=== PATIENT | male | born 1950 | race Caucasian/White ===

== ENCOUNTER 2023-08-03 14:06 | Outpatient (AMB) | payer MEDICARE, BC, SELFPAY ==
--- NOTE | 2023-08-03 14:07 | A.OFFVIS_ITS ---
Intake Intake Visit Reasons: Hydrocele Intake Note: NEW Patient presents today to established treatment for Hydrocele: Meds- None Allergies to Antibiotic- No Known Allergies Blood Thinner- None PVR- Patient Symptoms: None Mother Baby Rn Required: No Accompanied by: Self / Same As Patient Allergies morphine [MORPHINE] Allergy (Unknown, Verified 08/03/23 23:23) UNKNOWN Medication List - Last Reconciled 08/03/23 by KATHRYN Salinas-ANDREI hydromorphone mg PO TID lorazepam 1 mg PO DAILY PRN metoprolol succinate ER 100 mg PO DAILY sertraline 100 mg PO DAILY trazodone 100 mg PO BEDTIME PRN HPI HPI Comments History of Present Illness Details Ernie is a very pleasant 73-year-old male patient of Dr. Balderas. He has a past medical history of hypertension, hypercholesteremia, fatty liver, chronic pain from lumbar radiculopathy and left renal cyst. He presents to the office today as a new patient for left-sided hydrocele. In discussion with the patient today reports to be doing and feeling well. He reports a longstanding history of left-sided scrotal swelling. He discusses following up with Dr. Iniguez many years ago and having had multiple in office left-sided hydrocele drainage's performed however continues with recurrent left sided hydrocele. He discusses following up with his PCP at which time recommendations were made for urology referral for further assessment evaluation. However, in discussion with the patient today he does not find hydrocele bothersome and does not wish to undergo an in office drainage or surgical intervention. He declines assessment of the area. Discussed at length potential causes for hydroceles as well as risks and benefits of in office drainage versus surgical intervention. He otherwise denies any bothersome urinary issues or concerns at this time. He reports to be following up with his DREs and PSAs with his PCP. He denies denies urinary urgency, urinary frequency, incontinence, nocturia, hematuria, dysuria, foul smelling urine, changes to urinary stream, flank pain, fever, and or chills. He is happy with his current voiding parameters. [facility] Surgical History (Updated 08/03/23 @ 14:14 by PETRA Sanches) History of surgery on arm Hx of lithotripsy Hx of hernia repair History of colon resection Family History (Updated 08/03/23 @ 14:15 by PETRA Sanches) Father No problems noted. Mother No problems noted. Social History (Updated 08/03/23 @ 14:14 by PETRA Sanches) Unable to assess alcohol history related to: Unable to respond Patient Tobacco Use Status: Never used Tobacco Review of Systems Eyes Reports no additional complaints ENT Reports no additional complaints Card Reports as per HPI Resp Reports no additional complaints GI Reports as per HPI Reports as per HPI Musc Reports as per HPI Neuro Reports no additional complaints Psych Reports no additional complaints Endo Reports no additional complaints Eddy/Lymph Reports no additional complaints Aller/Immun Reports no additional complaints Physical Exam Const General: cooperative, healthy appearing, comfortable, no acute distress, well developed, alert and awake Nutritional Appearance: overweight Orientation/consciousness: patient oriented x3 Limitations: no limitations HEENT Head: Yes normal to inspection, Yes normocephalic and Yes atraumatic Ears: hearing grossly normal bilaterally Eyes General: appearance normal, both eyes and all related structures Neck Neck: Yes normal visual inspection and Yes trachea midline Chest Chest palpation & inspection: normal inspection of the chest Resp Effort & Inspection: normal respiratory effort and able to speak in complete sentences Cardio Rate: regular rate GI Inspection: Yes normal to inspection General: Yes no CVA tenderness Back/Spine/Pelvis Back: no CVA tenderness Skin General skin exam: no rashes or lesions noted Neuro General: patient oriented x3 Extrem General: Yes normal to inspection Psych Appearance: grossly normal and well kempt Mental Status: mental status grossly normal Speech and movement: Normal speech and movement present and Clear speech present Affect: normal affect Attitude: cooperative Thought process: Normal thought process present Thought content: Normal thought content present Insight: Fair insight present (Psych) Judgement: Fair judgement present (Psych) Results AMB Urinalysis, Automated UA Leukoctes 0 Flavia/uL Last Edit by PETRA Sanches on 08/03/23 14:24 UA Nitrite Negative Last Edit by PETRA Sanches on 08/03/23 14:24 UA Urobilinogen 0.2 mg/dL Last Edit by Oliver Chaves A on 08/03/23 14:2 4 UA Protein 15 mg/dL Last Edit by Oliver Chaves, A on 08/03/23 14:24 UA pH 6.0 Last Edit by Oliver Chaves A on 08/03/23 14:24 UA Blood 10 Rubin/uL Last Edit by Oliver Chaves, A on 08/03/23 14:24 UA Specific [place] 1.015 Last Edit by Oliver Chaves, A on 08/03/23 14: 24 UA Ketone Negative Last Edit by Oliver Chaves A on 08/03/23 14:24 UA Bilirubin 0 mg/dL Last Edit by Oliver Chaves A on 08/03/23 14:24 UA Glucose 0 mg/dL Last Edit by Oliver Chaves A on 08/03/23 14:24 Results Reviewed Results Reviewed: Laboratory Last Values Urine pH (Auto) 6.0 08/03/23 14:23 Specific [place] (Auto) 1.015 08/03/23 14:23 Urine Protein (Auto) 15 mg/dL 08/03/23 14:23 Glucose (UA)(Auto) 0 mg/dL 08/03/23 14:23 Urine Ketones (Auto) Negative 08/03/23 14:23 Urine Blood (Auto) 10 Rubin/uL 08/03/23 14:23 Urine Nitrite (Auto) Negative 08/03/23 14:23 Urine Bilirubin (Auto) 0 mg/dL 08/03/23 14:23 Urine Urobilinogen (Auto) 0.2 mg/dL 08/03/23 14:23 Leukocyte Esterase (Auto) 0 Flavia/uL 08/03/23 14:23 Assessment & Plan Assessment & Plan (1) Hydrocele: Code(s): N43.3 - Hydrocele, unspecified Plan In office urinalysis results reviewed with the patient today. Discussed at length potential causes for hydroceles. Discussed at length surgical intervention verses in office drainage; discussed risks and benefits of these interventions Patient denies any bothersome urinary issues or concerns at this time. Patient reports be happy with current voiding parameters. Patient does not wish to undergo treatment options for hydrocele as he does not find this bothersome Patient follows PCP for PAPA and PSAs per patient. Follow-up as needed Orders: Orders AMB Urinalysis Automated Today Z13.9 - Encounter for screening, unspecified Patient Instructions: The patient had an opportunity to ask questions regarding the treatment plan. All questions were answered. Physical exam, labs, and imaging were discussed and reviewed in detail. As well as risks, benefits, and discussion of treatment choices. No major barriers to understanding were identified. The patient expressed understanding and agreement with the above treatment plan. The patient was made aware they should contact our office by phone for worsening of their current condition, the appearance of new symptoms, or with any questions or concerns. Compliance is encouraged with any medications and follow up testing that is ordered. It is a privilege to be allowed the opportunity to participate in? your urological care.? Again, if you have any questions or concerns If you have any questions or concerns please do not hesitate to contact me. The office is [phone]. This note is constructed using voice recognition software. While every effort has been made to ensure accuracy software development advisor errors may have been included. Yours sincerely, DANIEL Salinas Coding Level of Care Code New Pt Level 3 (79370) Diagnoses Hydrocele N43.3
== END 2023-08-03 14:46 | disposition home or self-care (01) ==
PROVIDERS: PCP Physician Assistant; Visit Provider Nurse Practitioner Family
DX: N43.3 Hydrocele, unspecified (principal)
CPT/HCPCS: 99203

== ENCOUNTER → 2023-08-03 14:06 | Outpatient (BNVA) | payer MEDICARE, BC, SELFPAY | PROVIDERS: PCP Physician Assistant; Visit Provider Nurse Practitioner Family | DX: N43.3 Hydrocele, unspecified (principal) | CPT/HCPCS: 81003; 99202 ==

== ENCOUNTER 2024-01-11 12:58 | Outpatient (AMB) | payer MEDICARE, BC, SELFPAY ==
--- NOTE | 2024-01-11 13:00 | MHC.OFFVIS ---
Intake Intake Visit Reasons: cysto (Confirmed) Intake Note: Patient is Present for Cystoscopy Urology Med: Antibiotic Allergy: Blood Thinner: URO- G Disposable Cystoscope lot: exp: Allergies morphine [MORPHINE] Allergy (Unknown, Verified 08/03/23 23:23) UNKNOWN HPI HPI Comments History of Present Illness Details Ernie is a pleasant male. He is a patient Dr. Balderas. He seen for the following urologic condition - hydrocele - hematuria Episode of hematuria. Question of trauma related. UA negative. Inflamed prostate Bladder normal Grade 1/2 trabeculation with cellules Twelve month follow-up for UA Hematuria Here for cystoscopy Hydrocele Prior office drainage PFSH Surgical History (Updated 08/03/23 @ 14:14 by PETRA Sanches) History of surgery on arm Hx of lithotripsy Hx of hernia repair History of colon resection Family History (Updated 08/03/23 @ 14:15 by PETRA Sanches) Father No problems noted. Mother No problems noted. Social History (Updated 08/03/23 @ 14:14 by PETRA Sanches) Unable to assess alcohol history related to: Unable to respond Patient Tobacco Use Status: Never used Tobacco Review of Systems Const Denies chills and Denies fever(s) Card Reports no additional complaints and Denies syncope Resp Denies cough GI Denies abdominal pain and Denies heartburn Reports as per HPI and Denies change in libido Neuro Denies syncope Psych Denies change in libido Endo Denies change in libido Physical Exam Const General: cooperative, healthy appearing, comfortable and no acute distress Orientation/consciousness: patient oriented x3 HEENT Face and sinus: Yes normal facial exam Mouth: moist mucous membranes Neck Neck: Yes normal visual inspection, Yes full ROM and Yes trachea midline Chest Chest palpation & inspection: normal inspection of the chest Resp Effort & Inspection: normal respiratory effort, able to speak in complete sentences and no respiratory distress GI Inspection: Yes normal to inspection Back/Spine/Pelvis Cervical Spine: normal cervical lordosis Thoracic/Lumbar Spine: thoracic and lumbar spine normal to inspection Skin General skin exam: no rashes or lesions noted Neuro General: patient oriented x3, gait normal, tone normal and moves all extremities Extrem General: Yes normal to inspection and Yes capillary refill normal Office Procedures Cystoscopy Consent Discussed risk and benefit or proposed procedure with the patient. Information consent for procedure given to the patient. Discussed technical aspects, risks, benefits and alternatives in full. Addressed all of the patient's questions and concerns regarding the procedure. The patient demonstrated knowledge and understanding. They wish to proceed with this procedure. Preparation The patient was prepped in the usual manner. A job developer for deaf adults was present and in the room. Genitalia was prepped with betadine solution in a sterile manner. Lidocaine Jelly 2% was placed into the urethra and 16Fr flexible Olympus cystoscope was inserted into the meatus after adequate lubrication. 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 - [id number] DISPOSABLE SCOPE URO-G FLEXIBLE SCOPE Procedure code (CPT) selection complete Office Meds lidocaine HCl 2 % mucosal jelly in applicator Performing Provider: David Iniguez MD Performing Location: [facility] [place] [facility] Administered by: Vane Knott RN on 01/11/24 13:15 Dose Route Admin Location Dispensed Lot Number Expiration Date [facility] Roll Up Guider Operator 10 mL intra-urethral 10 mL nitrofurantoin monohydrate/macrocrystals 100 mg capsule Performing Provider: David Iniguez MD Performing Location: [facility] [place] [facility] Administered by: Vane Knott RN on 01/11/24 13:15 Dose Route Admin Location Dispensed Lot Number Expiration Date [place] Roll Up Guider Operator 100 mg PO 1 cap naproxen 500 mg tablet Performing Provider: David Iniguez MD Performing Location: [facility] [place] [facility] Administered by: Vane Knott RN on 01/11/24 13:15 Dose Route Admin Location Dispensed Lot Number Expiration Date [place] Roll Up Guider Operator 500 mg PO 1 tab Results AMB Urinalysis, Automated UA Leukoctes 0 Flavia/uL Last Edit by PETRA Anton on 01/11/24 13:14 UA Nitrite Negative Last Edit by PTERA Anton on 01/11/24 13:14 UA Urobilinogen 0.2 mg/dL Last Edit by PETRA Anton on 01/11/24 13:14 UA Protein 0 mg/dL Last Edit by Beatrice Guzman RMA on 01/11/24 13:14 UA pH 6.0 Last Edit by Beatrice Guzman, RMA on 01/11/24 13:14 UA Blood 0 Rubin/uL Last Edit by Beatrice Guzman, RMA on 01/11/24 13:14 UA Specific [place] 1.015 Last Edit by Beatrice Guzman, RMA on 01/11/24 13:14 UA Ketone Negative Last Edit by Beatrice Guzman RMA on 01/11/24 13:14 UA Bilirubin 0 mg/dL Last Edit by Beatrice Guzman, RMA on 01/11/24 13:14 UA Glucose 0 mg/dL Last Edit by Beatrice Guzman A on 01/11/24 13:14 Results Reviewed Results Reviewed: Laboratory Last Values Urine pH (Auto) 6.0 01/11/24 13:13 Specific [place] (Auto) 1.015 01/11/24 13:13 Urine Protein (Auto) 0 mg/dL 01/11/24 13:13 Glucose (UA)(Auto) 0 mg/dL 01/11/24 13:13 Urine Ketones (Auto) Negative 01/11/24 13:13 Urine Blood (Auto) 0 Rubin/uL 01/11/24 13:13 Urine Nitrite (Auto) Negative 01/11/24 13:13 Urine Bilirubin (Auto) 0 mg/dL 01/11/24 13:13 Urine Urobilinogen (Auto) 0.2 mg/dL 01/11/24 13:13 Leukocyte Esterase (Auto) 0 Flavia/uL 01/11/24 13:13 Assessment & Plan Assessment & Plan (1) Hematuria: Code(s): R31.9 - Hematuria, unspecified (2) Gross hematuria: Code(s): R31.0 - Gross hematuria (3) Hydrocele: Code(s): N43.3 - Hydrocele, unspecified Plan Twelve month follow-up UA Orders: Orders AMB Urinalysis Automated 01/11/24 Z13.9 - Encounter for screening, unspecified Prostate Specific Antigen 364 Days R31.0 - Gross hematuria AMB Cystoscopy 01/11/24 R31.9 - Hematuria, unspecified Patient Instructions: Imaging studies, laboratory and physical exam results were discussed and reviewed in detail. No major barriers to patient understanding were identified. An opportunity to ask questions regarding the treatment plan was provided. All questions were answered. The patient expressed understanding and agreement with the above treatment plan. The patient is aware they should contact our office by phone for worsening of their current condition or the appearance of new urologic symptoms. Compliance is encouraged with any medications and followup testing that is ordered. It is a privilege to participate in the urologic care of your patient. If you have any questions or concerns regarding treatment for the above conditions, or other urologic issues, please do not hesitate to contact me. The office telephone contact is [phone]. This note is constructed using voice recognition software. While every effort has been made to ensure accuracy consumer safety officer errors may have been included. Yours sincerely, Dr David Iniguez MD, [facility] - Urology Providers of Expert, Compassionate Care for the Genitourinary System Coding Level of Care Code Est Pt Level 3 (66572) Diagnoses Hematuria R31.9 Gross hematuria R31.0 Hydrocele N43.3 CPT Codes Cystoscopy - CPT: 91925-[id number] ([id number])
== END 2024-01-11 13:33 | disposition home or self-care (01) ==
PROVIDERS: PCP Internal Medicine; Visit Provider Urology
DX: R31.9 Hematuria, unspecified (principal); Z13.9 Encounter for screening, unspecified
CPT/HCPCS: 52000; 99213

== ENCOUNTER → 2024-01-11 12:58 | Outpatient (BNVA) | payer MEDICARE, BC, SELFPAY | PROVIDERS: PCP Internal Medicine; Visit Provider Urology | DX: R31.0 Gross hematuria (principal); N43.3 Hydrocele, unspecified | CPT/HCPCS: 52000; 81003; 99212 ==

== ENCOUNTER 2025-01-09 10:42 | Outpatient (AMB) | payer MEDICARE, OTHER, SELFPAY ==
--- NOTE | 2025-01-09 10:47 | A.OFFVIS_ITS ---
Intake Visit Reasons: 1y/PSA Intake Note: Patient presents today for follow up on: hematuria, hydrocele, and psa lab results PSA: 0.9 Urology Medications: none Allergies to Antibiotic- No Known Allergies Blood Thinner: Asa, Eliquis Clinical Systems Educator Required: No Accompanied by: Self / Same As Patient Allergies morphine [MORPHINE] Allergy (Unknown, Verified 01/09/25 11:23) UNKNOWN HPI Comments Details: Ernie is a pleasant 74-year-old male patient of Dr. Balderas. He has a past medical history of hypertension, hypercholesteremia, fatty liver, mild sle ep apnea treated with weight loss, and chronic pain from lumbar radiculopathy. He presents to the office today for follow-up of his hydrocele as well as hematuria. In discussion with the patient today he reports to be doing and feeling well. He denies having had any bothersome urinary issues or concerns since his last office visit here. Of note, during last office visit approximately 1 year ago he underwent an office cystoscopy due to a bout of hematuria with question of trauma related. In office cystoscopy noted inflamed prostate, bladder normal, and grade 1/2 trabeculations with cellules. He also has a history of left-sided hydrocele with in office drainage. When asked he does report episodes of nocturia however does report drinking fluids prior to bed. He denies urinary urgency, urinary frequency, incontinence, hematuria, dysuria, foul smelling urine, changes to urinary stream, flank pain, fever, and or chills. He is happy with his current voiding parameters. Recent PSA 01/26 0.9 In office urinalysis results reviewed with the patient today. He otherwise offers no other issues or concerns at this time. Discussion Notes I discussed with the patient that his PSA level is well within normal limits, indicating no immediate urological concerns. We reviewed that his frequent nocturnal urination. I educated the patient on lifestyle modifications, such as reducing evening fluid intake and earlier meal times, which may lessen his nocturia. I ensured he understands the importance of alertness to changes in symptoms that could warrant earlier evaluation than the planned annual follow- up. The strategy includes continuing the current monitoring routine and incorporating behavioral strategies to alleviate symptoms. There was no need for immediate interventions besides these adjustments. The patient appreciated the straightforward plan and agreed to follow the discussed lifestyle changes, with the understanding to contact the office should concerns arise between scheduled visits. [facility] Surgical History History of surgery on arm Hx of lithotripsy Hx of hernia repair History of colon resection Family History Father No problems noted. Mother No problems noted. Social History Unable to assess alcohol history related to: Unable to respond Patient Tobacco Use Status: Never used Tobacco Review of Systems Const All systems reviewed & are unremarkable except as noted in HPI and below Physical Exam Const General: cooperative, healthy appearing, comfortable, no acute distress, well developed, alert and awake Orientation/consciousness: patient oriented x3 Limitations: ambulation with cane HEENT Head: Yes normal to inspection, Yes normocephalic and Yes atraumatic Ears: hearing grossly normal bilaterally Eyes General: appearance normal, both eyes and all related structures Neck Neck: Yes normal visual inspection and Yes trachea midline Chest Chest palpation & inspection: normal inspection of the chest Resp Effort & Inspection: normal respiratory effort and able to speak in complete sentences Cardio Rate: regular rate GI Inspection: Yes normal to inspection General: Yes no CVA tenderness Back/Spine/Pelvis Back: no CVA tenderness Skin General skin exam: no rashes or lesions noted Neuro General: patient oriented x3 Extrem General: Yes normal to inspection Psych Appearance: grossly normal and well kempt Mental Status: mental status grossly normal Speech and movement: Normal speech and movement present and Clear speech present Affect: normal affect Attitude: cooperative Thought process: Normal thought process present Thought content: Normal thought content present Insight: Fair insight present (Psych) Judgement: Fair judgement present (Psych) Results AMB Urinalysis, Automated UA Leukoctes 0 Flavia/uL Last Edit by Stephen Vences on 01/09/25 11:08 UA Nitrite Last Edit by Stephen Vences on 01/09/25 11:08 UA Urobilinogen 0.2 mg/dL Last Edit by Stephen Vences on 01/09/25 11:08 UA Protein 0 mg/dL Last Edit by Stephen Vences on 01/09/25 11:08 UA pH 5.5 Last Edit by Stephen Vences on 01/09/25 11:08 UA Blood 0 Rubin/uL Last Edit by Stephen Vences on 01/09/25 11:08 UA Specific [place] 1.015 Last Edit by Stephen Vences on 01/09/25 11:08 UA Ketone Negative Last Edit by Stephen Vences on 01/09/25 11:08 UA Bilirubin 0 mg/dL Last Edit by Stephen Vences on 01/09/25 11:08 UA Glucose 0 mg/dL Last Edit by Stephen Vences on 01/09/25 11:08 Results Reviewed Results Reviewed: Laboratory Last Values Urine pH (Auto) 5.5 01/09/25 11:06 Specific [place] (Auto) 1.015 01/09/25 11:06 Urine Protein (Auto) 0 mg/dL 01/09/25 11:06 Glucose (UA)(Auto) 0 mg/dL 01/09/25 11:06 Urine Ketones (Auto) Negative 01/09/25 11:06 Urine Blood (Auto) 0 Rubin/uL 01/09/25 11:06 Urine Bilirubin (Auto) 0 mg/dL 01/09/25 11:06 Urine Urobilinogen (Auto) 0.2 mg/dL 01/09/25 11:06 Leukocyte Esterase (Auto) 0 Flavia/uL 01/09/25 11:06 Assessment & Plan Assessment & Plan (1) Nocturia: Code(s): R35.1 - Nocturia Category: Medical (2) Gross hematuria: Code(s): R31.0 - Gross hematuria Category: Medical (3) Hydrocele: Code(s): N43.3 - Hydrocele, unspecified Category: Medical Plan In office urinalysis results reviewed with the patient today; as noted above. Recent PSA results reviewed with the patient today; as noted above. We discussed at length potential causes of nocturia as well as further treatment options and risks and benefits of these treatment options. Will move forward with lifestyle modifications with limiting fluids 2-3 hours prior to bed to decrease episodes of nocturia. He otherwise denies any bothersome urinary issues or concerns. He reports be happy with current voiding parameters. Will continue with surveillance monitoring. Follow-up in 1 year with PSA and PVR; or sooner with any issues, concerns, and or questions. Orders: Orders Prostate Specific Antigen 01/04/25 R31.0 - Gross hematuria AMB Urinalysis Automated Today Z13.9 - Encounter for screening, unspecified Prostate Specific Antigen 1 Year N40.0 - Benign prostatic hyperplasia without lower urinary tract symptoms, R35.1 - Nocturia Patient Instructions: The patient had an opportunity to ask questions regarding the treatment plan. All questions were answered. Physical exam, labs, and imaging were discussed and reviewed in detail. As well as risks, benefits, and discussion of treatment choices. No major barriers to understanding were identified. The patient expressed understanding and agreement with the above treatment plan. The patient was made aware they should contact our office by phone for worsening of their current condition, the appearance of new symptoms, or with any questions or concerns. Compliance is encouraged with any medications and follow up testing that is ordered. It is a privilege to be allowed the opportunity to participate in? your urological care.? Again, if you have any questions or concerns If you have any questions or concerns please do not hesitate to contact me. The office is [phone]. This note is constructed using voice recognition software. While every effort has been made to ensure accuracy prison librarian errors may have been included. Yours sincerely, DANIEL Salinas Coding Level of Care Code Est Pt Level 3 (62173) Complex EM visit Add On G2211 Diagnoses Nocturia R35.1 Gross hematuria R31.0 Hydrocele N43.3
--- OUTSIDE RECORDS SUMMARY | 2025-01-09 12:50 | XMS_ITS | Clinical Summary ---
Author Organization [facility] Address [address] [place] [address] Care Team Providers Care Side Stitcher Name Role Phone Thai Rose MD Primary Care Provider [phone] Encounters Date Type Department Care Team Description 12/01/2024 Telephone Gastroenterology - [address] [phone] Patrick Atkins MD 12/01/2024 Telephone Gastroenterology - [address] [phone] Patrick Atkins MD from Last 3 Months Surgical History Surgery Date Site/Laterality Comments HERNIA REPAIR PROCEDURE:HERNIA REPAIR ORIF HUMERUS FRACTURE 11/24/2020 Right PROCEDURE:ORIF HUMERUS FRACTURE;COMMENT:Procedure: ORIF RIGHT HUMERUS; Surgeon: Benigno Ralph MD; Location: [facility]PER[facility] RO[facility]; Service: Orthopedics; Laterality: Right; Medical History Medical History Date Comments Gout DX:Gout Hypertension DX:Hypertension Peptic ulceration DX:Peptic ulce ration Chronic back pain DX:Chronic snehal k pain Family History Medical History Relation Name Comments Cancer Father Cancer Mother Relation Name Status Comments Father Mother Social History Tobacco Use Types Packs/Day Years Used Date Smoking Tobacco: Former Cigarettes Q uit: 10/04/1974 Smokeless Tobacco: Never Alcohol Use Standard Drinks/Week Comments Yes 0 (1 standard drink = 0.6 oz pur e alcohol) Sex and Gender Information Value Date Recorded Sex Assigned at Not on file Legal Sex Male 5:41 AM EST Gender Identity Not on file Sexual Orientation Not on file Obstetrics History Plan of Treatment Health Maintenance Due Date Last Done Comments Pneumococcal Vaccine: 50+ Ye ars (1 of 1 - PCV) 2002 Zoster Vaccines (1 of 2) 2002 Abdominal Aortic Aneurysm (A AA) Screen 09/06/2022 Cholesterol Screening (Lipid Panel) 09/06/2022 Colorectal Cancer Screening: Colonoscopy 09/06/2022 Depression Screening 09/06/2022 Falls Risk Assessment 09/06/2022 Hepatitis C Screening 09/06/2022 Social Influencers of Health Screening 09/06/2022 COVID-19 Vaccine (1 - 2023-2 5 season) 2024 Influenza Vaccine (#1) 2024 RSV Immunization Adult Patie nts (1 - 1-dose 75+ series) 2027 DTaP,Tdap,and Td Vaccines (2 - Td or Tdap) 11/24/2030 11/24/2020 HIB Vaccines Aged Out No longer eligi ble based on patient's age to complete this topic HPV Vaccines Aged Out No longer eligi ble based on patient's age to complete this topic Hepatitis A Vaccines Aged Out No long er eligible based on patient's age to complete this topic Hepatitis B Vaccines Aged Out No long er eligible based on patient's age to complete this topic IPV Vaccines Aged Out No longer eligi ble based on patient's age to complete this topic MMR Vaccines Aged Out No longer eligi ble based on patient's age to complete this topic Meningococcal ACWY Vaccine Aged Out N o longer eligible based on patient's age to complete this topic Meningococcal B Vaccine Aged Out No l onger eligible based on patient's age to complete this topic RSV Immunization Patients Un kortney 20 months Aged Out No longer eligible b ased on patient's age to complete this topic Varicella Vaccines Aged Out No longer eligible based on patient's age to complete this topic Medical Devices Implanted Type Area Railway Signalling Engineer Device Identifier Shelf Expiration Date Model / Serial / Lot Screw Dcp Lc-Dcp 26mm 3.5mm Selftap Hexagonal Recess - [id number] Implanted:Qty: 1 on 11/24/2020 by Benigno Ralph MD Right: [employer] 204.826 / / Screw Dcp Lc-Dcp 32mm 3.5mm Selftap Hexagonal Recess - [id number] Implanted:Qty: 1 on 11/24/2020 by Benigno Ralph MD Right: [employer] 204.832 / / Screw Lcp Fullthrd 32mm 3.5mm Stardrive Recess Selftap Tip - [id number] Implanted:Qty: 1 on 11/24/2020 by Benigno Ralph MD Right: [employer] 212.112 / / Screw Dcp Lc-Dcp 28mm 3.5mm Selftap Hexagonal Recess - [id number] Implanted:Qty: 1 on 11/24/2020 by Benigno Ralph MD Right: [employer] 204.828 / / Screw Dcp Lc-Dcp 30mm 3.5mm Selftap Hexagonal Recess - [id number] Implanted:Qty: 1 on 11/24/2020 by Benigno Ralph MD Right: [employer] 204.830 / / 4.5mm/3.5 Lcp Metaphyseal Plates Implanted:Qty: 1 on 11/24/2020 by Benigno Ralph MD Right: [employer] 224.759 / / Screw Lcp 32mm 4.5mm 8mm Selftap Large Hexagonal Socket - [id number] Implanted:Qty: 3 on 11/24/2020 by Benigno Ralph MD Right: [employer] 214.832 / / Screw Lcp 34mm 4.5mm 8mm Selftap Large Hexagonal Socket - [id number] Implanted:Qty: 1 on 11/24/2020 by Benigno Ralph MD Right: [employer] 214.834 / / Screw Lcp 36mm 4.5mm 8mm Selftap Large Hexagonal Socket - [id number] Implanted:Qty: 1 on 11/24/2020 by Benigno Ralph MD Right: [employer] 214.836 / / Screw Lcp Fullthrd 38mm 3.5mm Stardrive Recess Selftap Tip - [id number] Implanted:Qty: 2 on 11/24/2020 by Benigno Ralph MD Right: [employer] 212.116 / / Screw Bone L44 Mm Od3.5 Mm Prxml Slf Tpng T25 Ns - [id number] Implanted:Qty: 1 on 11/24/2020 by Benigno Ralph MD Right: [employer] 212.134 / / Care Teams Side Stitcher Relationship Specialty Start Date End Date Thai Rose MD PCP - General Lunch Wagon Operator 03/12/20
--- OUTSIDE RECORDS SUMMARY | 2025-01-09 12:51 | XMS_ITS | Clinical Summary ---
Author Organization [facility] Address [address] [place] [address] Care Team Providers Care Heel Boom Operator Name Role Phone Thai Casey MD Primary Care Provider [phone] Allergies Active Allergy Reactions Criticality Noted Date Comments Morphine 03/12/2020 Patient states that his airway begins to close up when taking morphine Medications Medication Sig Dispensed Refills Start Date End Date Status atorvastatin (LIPITOR) tablet 40 mg 0 12/25/2019 Active lisinopril (PRINIVIL,ZESTRIL) tablet 40 mg 0 12/25/2019 Active metoprolol succinate (TOPROL-XL) 24 hr tablet 100 mg 0 12/25/2019 Active sertraline (ZOLOFT) 50 MG tablet TK 1 T PO QD 0 04/03/2020 Active oxyCODONE (ROXICODONE) 5 MG immediate release tablet Take 1-2 tablets (5-10 mg total) by mouth every 4 (four) hours as needed. 30 tablet 0 11/25/2020 Active ondansetron (ZOFRAN-ODT) 4 MG disintegrating tablet Take 1 tablet (4 mg total) by mouth 3 (three) times a day as needed for nausea. 20 tablet 0 11/25/2020 Active polyethylene glycol (MIRALAX) 17 g packet Take 17 g by mouth daily. 14 each 0 11/26/2020 Active senna-docusate (PERICOLACE) 8.6-50 MG Take 1 tablet by mouth 2 (two) times a day. 60 tablet 0 11/25/2020 Active methocarbamol (ROBAXIN) 750 MG tablet Take 1 tablet (750 mg total) by mouth every 6 (six) hours as needed. 180 tablet 0 11/25/2020 Active vitamin D3 (VITAMIN D3) 25 MCG (1000 UT) tablet Take 1 tablet (1,000 Units total) by mouth daily. 60 tablet 0 11/26/2020 Active azelastine (ASTELIN) 0.1 % nasal spray INHALE 2 PUFFS TWICE A DAY 30 DAY(S) 0 11/25/2020 Active doxycycline (VIBRAMYCIN) 100 MG capsule Take 100 mg by mouth 2 (two) times a day. 0 11/12/2020 Active fluticasone (FLONASE) 50 MCG/ACT nasal spray SHAKE LIQUID AND USE 1 TO 2 SPRAYS IN EACH NOSTRIL EVERY DAY 0 11/05/2020 Active HYDROmorphone (DILAUDID) 4 MG tablet Take 4 mg by mouth every 4 (four) hours. 0 01/03/2021 Active oxyCODONE-acetaminophe n (PERCOCET) 5-325 MG per tablet 0 11/27/2020 Active simvastatin (ZOCOR) tablet 10 mg Take 10 mg by mouth. 0 Active Active Problems Problem Noted Date Diagnosed Date Left supracondylar humerus fracture, sequela Immunizations Name Administration Dates Next Due Td (Tenivac) 11/24/2020 Family History Medical History Relation Name Comments Cancer Father Cancer Mother Relation Name Status Comments Father Mother Social History Tobacco Use Types Packs/Day Years Used Date Smoking Tobacco: Former Cigarettes Q uit: 1975 Smokeless Tobacco: Never Alcohol Use Standard Drinks/Week Comments Yes 0 (1 standard drink = 0.6 oz pur e alcohol) 1 to 2 glasses of wine Sex and Gender Information Value Date Recorded Sex Assigned at Male 11/23/2020 7:04 PM EST Gender Identity Not on file Sexual Orientation Not on file Job Start Date Occupation Industry Not on file Not on file Not on file Last Filed Vital Signs Vital Sign Reading Time Taken Comments Blood Pressure 117/74 11/25/2020 8:11 AM EST Pulse 90 11/25/2020 8:11 AM EST Temperature 36.3 ??C (97.4 ??F) 11/25/2020 8:11 AM ES T Respiratory Rate 18 11/25/2020 8:11 AM EST Oxygen Saturation 95% 11/25/2020 8:11 AM EST Inhaled Oxygen Concentration - - Weight 103.8 kg (228 lb 12.8 oz) 11/24/2020 5:07 AM EST Height 172.7 cm (5' 8 ) 11/24/2020 5:07 AM EST Body Mass Index 34.79 11/24/2020 5:07 AM EST Plan of Treatment Health Maintenance Due Date Last Done Comments Hepatitis C Screening 1952 COVID-19 Vaccine (#1) 1952 Depression Screening 1964 BMI Counseling 1970 Preventative Health Evaluation 1970 Colon Cancer Screening (Colonoscopy) 1997 Shingrix-Zoster Vaccine (1 o f 2) 2002 Fall Risk Assessment 2017 Pneumococcal Vaccine (1 of 1 - PCV) 2017 DTap / Tdap / Td (1 - Tdap) 11/25/2020 11/24/2020 Influenza Vaccine (#1) 2024 0, 10/18/2019 RSV Adult > 60+ Yrs or (1 - 1-dose 75+ series) 2027 Hepatitis B Vaccines Aged Out No long er eligible based on patient's age to complete this topic RSV Ped < 20 months Aged Out No longe r eligible based on patient's age to complete this topic Medical Devices Implanted Type Area Iron Miner Blasting Device Identifier Shelf Expiration Date Model / Serial / Lot Screw Dcp Lc-Dcp 26mm 3.5mm Selftap Hexagonal Recess - [id number] - [id number] Implanted:Qty: 1 on 11/24/2020 by Benigno Ralph MD at [facility] Right: [employer] 204.826 / / Screw Dcp Lc-Dcp 32mm 3.5mm Selftap Hexagonal Recess - [id number] - [id number] Implanted:Qty: 1 on 11/24/2020 by Benigno Ralph MD at [facility] Right: [employer] 204.832 / / Screw Lcp Fullthrd 32mm 3.5mm Stardrive Recess Selftap Tip - [id number] - [id number] Implanted:Qty: 1 on 11/24/2020 by Benigno Ralph MD at [facility] Right: [employer] 212.112 / / Screw Dcp Lc-Dcp 28mm 3.5mm Selftap Hexagonal Recess - [id number] - [id number] Implanted:Qty: 1 on 11/24/2020 by Benigno Ralph MD at [facility] Right: [employer] 204.828 / / Screw Dcp Lc-Dcp 30mm 3.5mm Selftap Hexagonal Recess - [id number] - [id number] Implanted:Qty: 1 on 11/24/2020 by Benigno Ralph MD at [facility] Right: [employer] 204.830 / / 4.5mm/3.5 Lcp Metaphyseal Plates Implanted:Qty: 1 on 11/24/2020 by Benigno Ralph MD at [facility] Right: [employer] 224.759 / / Screw Lcp 32mm 4.5mm 8mm Selftap Large Hexagonal Socket - [id number] - [id number] Implanted:Qty: 3 on 11/24/2020 by Benigno Ralph MD at [facility] Right: [employer] 214.832 / / Screw Lcp 34mm 4.5mm 8mm Selftap Large Hexagonal Socket - [id number] - [id number] Implanted:Qty: 1 on 11/24/2020 by Benigno Ralph MD at [facility] Right: [employer] 214.834 / / Screw Lcp 36mm 4.5mm 8mm Selftap Large Hexagonal Socket - [id number] - [id number] Implanted:Qty: 1 on 11/24/2020 by Benigno Ralph MD at [facility] Right: [employer] 214.836 / / Screw Lcp Fullthrd 38mm 3.5mm Stardrive Recess Selftap Tip - [id number] - [id number] Implanted:Qty: 2 on 11/24/2020 by Benigno Ralph MD at [facility] Right: [employer] 212.116 / / Screw Bone L44 Mm Od3.5 Mm Prxml Slf Tpng T25 Ns - [id number] - [id number] Implanted:Qty: 1 on 11/24/2020 by Benigno Ralph MD at [facility] Right: [employer] 212.134 / / Advance Directives For more information, please contact: [phone] Latest Code Status on File Code Status Date Activated Date Inactivated Comments Full Code 11/24/2020 2:35 PM 11/25/2020 7:36 PM This code status was ascertained in the following way: discussion with patient . Code Status History Code Status Date Activated Date Inactivated Comments Full Code 11/23/2020 11:57 PM 11/24/2020 2:35 PM This code status was ascertained in the following way: patient Care Teams Heel Boom Operator Relationship Specialty Start Date End Date Thai Casey MD [address] [place] [id number] PCP - General Workers Compensation Claims Specialist 03/12/20
--- OUTSIDE RECORDS SUMMARY | 2025-01-09 12:51 | XMS_ITS | Clinical Summary ---
Author Organization [facility] Address [address] [place] [address] Care Team Providers Care Theater Usher Name Role Phone Thai Rose MD Primary Care Provider [phone] Allergies Active Allergy Reactions Criticality Noted Date Comments Morphine Anaphylaxis High 01/06/2021 Medications metoprolol succinate XL (TOPROL-XL) 100 mg 24 hr tablet Take 100 mg by mouth daily. Active lisinopriL (PRINIVIL) 20 mg tablet Take 20 mg by mouth daily. Active simvastatin (ZOCOR) 10 mg tablet Take 10 mg by mouth nightly. Active HYDROmorphone (DILAUDID) 4 mg tablet Take 4 mg by mouth every 4 (four) hours as needed for moderate pain (4-7). Active Active Problems Problem Noted Date Diagnosed Date Lumbar pain 01/10/2021 Degenerative lumbar spinal stenosis 01/10/2021 Social History Tobacco Use Types Packs/Day Years Used Date Smoking Tobacco: Never Smokeless Tobacco: Never Alcohol Use Standard Drinks/Week Comments Not Currently 0 (1 standard drink = 0.6 oz pur e alcohol) Sex and Gender Information Value Date Recorded Sex Assigned at Not on file Legal Sex Male 11:10 AM EDT Gender Identity Not on file Sexual Orientation Not on file Last Filed Vital Signs Vital Sign Reading Time Taken Comments Blood Pressure 130/64 01/14/2021 9:05 AM EDT Pulse 88 01/14/2021 9:05 AM EDT Temperature 36.3 ??C (97.3 ??F) 01/14/2021 8:40 AM ED T Respiratory Rate 16 01/14/2021 9:05 AM EDT Oxygen Saturation 95% 01/14/2021 9:05 AM EDT Inhaled Oxygen Concentration - - Weight 99.8 kg (220 lb) 01/14/2021 8:40 AM EDT Height 172.7 cm (5' 8 ) 01/13/2021 12:59 PM EDT Body Mass Index 33.45 01/13/2021 12:59 PM EDT Plan of Treatment Health Maintenance Due Date Last Done Comments CT Colonography 1952 Colonoscopy 1952 Colorectal Cancer Screening 1952 FIT-DNA (Cologuard) 1952 FIT 1952 FOBT 1950 Flex Sigmoidoscopy - 5y 1952 HIV Screening 1952 Pneumococcal Vaccine, 50+ Years (1 of 1 - PCV) 2002 Zoster Vaccines (1 of 2) 2002 DTaP,Tdap,and Td Vaccines (1 - Tdap) 11/25/2020 11/24/2020 COVID-19 Vaccine (1 - 2023-2 5 season) 2024 Influenza Vaccine (Season Ended) 2025 08/30/2020, 10/18/2019 HPV Vaccines Aged Out No longer eligi ble based on patient's age to complete this topic Hepatitis A Vaccines Aged Out No long er eligible based on patient's age to complete this topic Meningococcal Vaccine Aged Out No bri justyna eligible based on patient's age to complete this topic Insurance MEDICARE PART A & B [facility] 65 Advance Directives For more information, please contact: [phone] Documents on File Type Date Recorded Patient Legal Transcriptionist Expl anation Advance Directives 01/16/2021 1:54 PM Care Teams Theater Usher Relationship Specialty Start Date End Date Thai Rose MD [address] [phone] PCP - General Internal Medicine 01/04/21
--- OUTSIDE RECORDS SUMMARY | 2025-01-09 12:51 | XMS_ITS | Data Portability ---
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 He has myofascial pain syndrome in his right abdominal wall. Trigger points were palpated with reproduction of his pain in right abdominal wall. Trial of trigger point injections under ultrasound guidance were discussed with him. The risks and benefits of the procedure were discussed and he wishes to proceed and an appointment has been made for the same. [email or web address] Not available 09/19/2018 10:28:45 09/19/2018 09/19/2018 Ernie Peñaloza is a 68 year old man with complaints of pain in his right abdominal wall S/P hernia repair with mesh placement . He has myofascial pain syndrome in his right abdominal wall. Trigger points were palpated with reproduction of his pain in right abdominal wall. He is here for a trial of trigger point injections in his right abdominal wall under ultrasound guidance .The risks and benefits of the procedure were discussed and he wishes to proceed He needs to follow up in two weeks for a repeat injection [email or web address] Not available 09/19/2018 11:43:34 10/06/2018 10/06/2018 Ernie Peñaloza is a 68 year old man with complaints of pain in his right abdominal wall S/P hernia repair with mesh placement . He has myofascial pain syndrome in his right abdominal wall. Trigger points were palpated with reproduction of his pain in right abdominal wall. He is here for a trial of trigger point injections in his right abdominal wall under ultrasound guidance .The risks and benefits of the procedure were discussed and he wishes to proceed He needs to follow up in two weeks for a repeat injection [email or web address] Not available 10/06/2018 16:08:06 11/03/2018 11/03/2018 Ernie Peñaloza is a 68 year old man with complaints of pain in his right abdominal wall S/P hernia repair with mesh placement . He has myofascial pain syndrome in his right abdominal wall. Trigger points were palpated with reproduction of his pain in right abdominal wall. He is here for a repeat trigger point injections in his right abdominal wall under ultrasound guidance .The risks and benefits of the procedure were discussed and he wishes to proceed He needs to follow up in three weeks for a repeat injection [email or web address] Not available 11/07/2018 12:02:37 12/15/2018 12/15/2018 Ernie Peñaloza is a 68 year old man with complaints of pain in his right abdominal wall S/P hernia repair with mesh placement . He has myofascial pain syndrome in his right abdominal wall. Trigger points were palpated with reproduction of his pain in right abdominal wall. He is here for a repeat trigger point injections in his right abdominal wall under ultrasound guidance .The risks and benefits of the procedure were discussed and he wishes to proceed He will make a follow up appointment with Dr. Hernandez . He is complaining of low back pain and had treatment with Dr. Lagunas. I will obtain records from [facility] and review and call him with details and further treatment plans. [email or web address] Not available 12/15/2018 15:13:20 Plan of Treatment Reminders Order Date Submit Date Provider Last Modified By Organization Details Last Modified Time Details Appointments None record ed. Lab None record ed. Referral None record ed. Procedures None record ed. Surgeries None record ed. Imaging None record ed. Medication Orders None record ed. Patient TargetsNo targets recorded. Patient InstructionsNo instructions recorded. Reason for Referral None Reported. Problems Name Problem SNOMED Code Status Onset Date Resolution Date Notes Provider Name and Address Organization Details Recorded Time Abdominal wall pain [id number] Josee cote MD [address] , [address], [place], [address] [facility] [place] [facility] 8 10:16:41 Muscle pain [id number] Josee cote MD [address] , [address], [place], [address], [place] [facility] 8 10:16:51 Problem Notes None recorded. Procedures Surgical History Date Name Laterality Status Provider Name and Address Organization Details Recorded Time 9 Trigger Point Injections under ultrasound guidance completed Chiquis Drake MD [address] [facility] , [address], [place], [address], [place] [facility] 12/15/2018 15:10:51 9 Trigger Point Injections under ultrasound guidance completed Chiquis Drake MD [address] , [address], [place], [address], [place] [facility] 11/07/2018 12:00:37 9 Trigger Point Injections under ultrasound guidance completed Chiquis Drake MD [address] [facility] , [address], [place], [address], [place] [facility] 10/06/2018 16:08:15 8 Trigger Point Injections under ultrasound guidance completed Chiquis Drake MD [address] , [address], [place], [address], [place] [facility] 09/19/2018 11:40:20 Hernia Repair completed Elisha Cavanaugh [place] [facility] 09/14/2018 14:55:30 Other completed Elisha Cavanaugh [place] [facility] 09/14/2018 14:56:56 Other completed Elisha Cavanaugh [place] [facility] 09/14/2018 14:57:21 Imaging Results None recorded. Procedure Notes None recorded. Medical Equipment None Reported. Allergies Allergen ID Allergen Name Allergen Category Reaction Reaction Severity Criticality Documentation Date Start Date Code Code System Note Provider Name and Address Organization Details Recorded Time 29713 morphine medicatio n anaphylax is Not available Not available 09/14/2018 7052 RxNorm Elisha yen [place] [facility] 8 14:48:15 Medications Name Sig Start Date Stop Date Status Note LastModified by Organization Details LastModified Time atorvastat in 40 mg tablet active Not Available Not Available Not Available prednisone 10 mg tablet active Not Available Not Available Not Available doxycyclin e hyclate 100 mg capsule 09/14 completed Not Available Not Available Not Available ondansetro n HCl 4 mg tablet active Not Available Not Available Not Available metoprolol succinate ER 100 mg tablet,ext ended release 24 hr active Not Available Not Available Not Available amlodipine 5 mg tablet active Not Available Not Available Not Available tramadol 50 mg tablet active as needed Not Available Not Available Not Available potassium citrate ER 10 mEq (1,080 mg) tablet,ext ended release active Not Available Not Available Not Available erythromyc in 5 mg/gram (0.5 %) eye ointment APPLY 1 CM RIBBON INTO LOWER AFFECTED EYE 3 TIMES PER DAY 09/14 completed Not Available Not Available Not Available neomycin-p olymyxin-d exameth 3.5 mg/mL-10,0 00 unit/mL-0. 1% eye drops 09/14 completed Not Available Not Available Not Available prednisone 50 mg tablet 09/14 completed Not Available Not Available Not Available indomethac in 50 mg capsule TAKE 1 CAPSULE( S) 3 TIMES A DAY BY ORAL ROUTE WITH MEALS. *NEEDS PA* 09/14 completed Not Available Not Available Not Available lisinopril 40 mg tablet active Not Available Not Available Not Available doxycyclin e hyclate 100 mg tablet active Not Available Not Available Not Available oxycodone 5 mg tablet 09/14 completed Not Available Not Available Not Available acamprosat e 333 mg tablet,del ayed release 10/06 completed Not Available Not Available Not Available hydrocodon e 5 mg-acetami nophen 300 mg tablet TAKE 1 TABLET ORALLY 4 TIMES A DAY NEEDED active Not Available Not Available No t Available Vitals Date Recorded Heart rate Oxygen saturation Oxygen saturation in Arterial blood by Pulse oximetry Body height Body mass index (BMI) Body weight Systolic blood pressure Diastolic blood pressure Provider Name and Address Organization Details Last Updated DateTime 8 87 /min 97 % 97 % 175.26 cm 31.7 kg/m2 57695.3 6 g 176 mm[Hg] 94 mm[Hg] Elisha Cavanaugh [place] [facility] 8 14:46:51 Date Recorded Body height Heart rate Oxygen saturation Oxygen saturation in Arterial blood by Pulse oximetry Systolic blood pressure Diastolic blood pressure Provider Name and Address Organization Details Last Updated DateTime 8 175.26 cm 88 /min 98 % 98 % 154 mm[Hg] 80 mm[Hg] Elisha Cavanaugh [place] [facility] 8 10:52:54 Date Recorded Body height Heart rate Oxygen saturation Oxygen saturation in Arterial blood by Pulse oximetry Systolic blood pressure Diastolic blood pressure Provider Name and Address Organization Details Last Updated DateTime 9 175.26 cm 76 /min 98 % 98 % 115 mm[Hg] 57 mm[Hg] Elisha Cavanaugh [place] [facility] 9 15:35:18 Date Recorded Body height Heart rate Oxygen saturation Oxygen saturation in Arterial blood by Pulse oximetry Systolic blood pressure Diastolic blood pressure Provider Name and Address Organization Details Last Updated DateTime 9 175.26 cm 82 /min 97 % 97 % 137 mm[Hg] 74 mm[Hg] Elisha Cavanaugh [place] [facility] 9 16:00:26 Date Recorded Body height Heart rate Oxygen saturation Oxygen saturation in Arterial blood by Pulse oximetry Systolic blood pressure Diastolic blood pressure Provider Name and Address Organization Details Last Updated DateTime 9 175.26 cm 80 /min 98 % 98 % 135 mm[Hg] 71 mm[Hg] Elisha Cavanaugh [place] [facility] 9 14:31:11 Social History Question Answer Notes LastModified by Organizat ion Details LastModified Time Tobacco Smoking Status Former Smoker Quit x 40 years Not Available [facility] 07/19/2020 03:16:10 What Is Your Level Of Alcohol Consumption? 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 With Others Information not available 09/14/2018 Marital Status Informatio n not available 09/14/2018 What Was The Date Of Your Most Recent Tobacco Screening? 12/15/2018 [id number] Information not available 07/19/2020 How Many Years Have You Smoked Tobacco? 40 [id number] Information not available 07/19/2020 Sex: Unknown Functional Status None recorded. Mental Status None recorded. Family History Relationship Description Onset Age of this Age Resolved Age Notes LastModified by Organization Details LastModified Time Father No current problems or disability Not available 09/14 14:51:54 Mother No current problems or disability Not available 09/14 14:51:54 Medical History Condition Response Arthritis Y Hypertension Y GERD/Reflux Y High Cholesterol Y Past Encounters Encounter ID Performer Location Encounter Start Date Encounter Closed Date Diagnosis/Indication Diagnosis SNOMED-CT Code Diagnosis ICD10 Code Diagnosis Note [id number] Chiquis Drake MD PAIN OFFICE [address] [place] [address] 09/14/2018 14:29:32 09/19/2018 10:29:26 Muscle pain 93365373 M79.10 Abdominal wall pain 1620 49152 R10.9 [id number] Chiquis Drake MD PAIN OFFICE [address],[place] [address] 09/19/2018 10:29:07 09/19/2018 15:31:44 Muscle pain 47795179 M79.10 Abdominal wall pain 1620 56783 R10.9 [id number] Chiquis Drake MD [facility] [address],[place] [address] 10/06/2018 15:31:09 10/07/2018 08:51:20 Muscle pain 21923561 M79.10 Abdominal wall pain 1620 88767 R10.9 [id number] Chiquis Drake MD [facility] [address] [address] 11/03/2018 14:58:29 11/07/2018 12:04:10 Muscle pain 38972517 M79.10 Abdominal wall pain 1620 05626 R10.9 [id number] Chiquis Drake MD [facility] [address],[place] [address] 12/15/2018 13:56:58 12/15/2018 15:14:30 Muscle pain 48625897 M79.18 Abdominal wall pain 1620 97276 R10.9 Health Concerns Section Related Observation LastModified by Organization Detai ls LastModified Time None Recorded Concern Status LastModified by Organization Details LastModified Time None Recorded Advance Directives Directive None Recorded Payers Encounter Date Sequence Insurance Name Policy Number Policy Garza Covered Member ID Garza Member ID Guarantor Name 09/14/2018 2 [place] [id number] Arnaldo Bernarda [id number] Ernie Bernarda 09/14/2018 1 [place] Ernie Bernarda [id number] Ernie Bernarda 09/19/2018 2 [place] [id number] Arnaldo Fraziernella [id number] Ernie Fraziercarsona 09/19/2018 1 [place] Ernie Torin Fraziercarsona [id number] Ernie Fraziercarsona 10/06/2018 2 [place] [id number] Arnaldo Bernarda [id number] Ernie Fraziernella 10/06/2018 1 [place] Ernie Bernarda [id number] Ernie Bernarda 11/03/2018 2 [place] [id number] Arnaldo Fraziernella [id number] Ernie Fraziernella 11/03/2018 1 [place] Ernie Bernarda [id number] 05 Ernie Fraziercarsona 12/15/2018 2 [place] [id number] Arnaldo Fraziernella [id number] Ernie Bernarda 12/15/2018 1 [place] Ernie Frazierjennifer [id number] Ernie Peñaloza Notes Date Note Type Note Provider Name and Address Organization Details Recorded Time 09/14/2018 text/html Ernie vuong is a 68 year old man with complaints of pain in the right abdominal wall. He is S/P hernia surgery with mesh placement on 07/18/2018 . He has been having pain since the surgery. He describes the pain as a sharp stabbing pain. Current pain level is 7/10. High pain level is 10/10. Movement such as bending and sitting aggravates the pain. Pain is improved a little with laying down.He has had colon resection in the past for diverticulosis. He has no history of nausea, vomiting , fever or constipation. He has no history of bladder or bowel incontinence. Chiquis Drake MD [address] [facility] , [address], [place], [address], [place] [facility] 09/28/2018 09:59:15 09/19/2018 text/html He is here for a trigger point injections in his right abdominal wall under ultrasound guidance. Chiquis Drake MD [address] [facility] [address], [place], [address], [place] [facility] 09/28/2018 10:01:51 10/06/2018 text/html He is here for a trigger point injections in his right abdominal wall under ultrasound guidance. Chiquis Drake MD [address] [facility] , [address], [place], [address], [place] [facility] 10/10/2018 09:05:43 11/03/2018 text/html He is here for a trigger point injections in his right abdominal wall under ultrasound guidance. Chiquis Drake MD [address] [facility] , [address], [place], [address], [place] [facility] 11/10/2018 11:42:18 12/15/2018 text/html He is here for a trigger point injections in his right abdominal wall under ultrasound guidance. He reports 50% pain benefit for three weeks. He is concerned as he continues to have pain 5 months post surgery. Chiquis Drake MD [address] [facility] , [address], [place], [address], [place] [facility] 12/22/2018 08:49:39
== END 2025-01-09 11:54 | disposition home or self-care (01) ==
PROVIDERS: PCP Internal Medicine; Visit Provider Nurse Practitioner Family
DX: R35.1 Nocturia (principal); R31.0 Gross hematuria; N43.3 Hydrocele, unspecified; Z13.9 Encounter for screening, unspecified
CPT/HCPCS: 99213; G2211

== ENCOUNTER → 2025-01-09 10:42 | Outpatient (BNVA) | payer MEDICARE, OTHER, SELFPAY | PROVIDERS: PCP Internal Medicine; Visit Provider Nurse Practitioner Family | DX: R35.1 Nocturia (principal); R31.0 Gross hematuria; N43.3 Hydrocele, unspecified | CPT/HCPCS: 81003; 99212 ==